=== PATIENT | male | born 1935 | race Two or more races ===

== ENCOUNTER 2020-02-24 12:09 | Emergency (ER) | payer OTHER ==
[~2020-02-24] VITALS: Ht 172.7 cm; Wt 92.5 kg
[2020-02-24] MEDS ORDERED: HUMULIN 70100 UNIT/2 SUBCUTANEO (12:23)
[2020-02-24] MEDS ORDERED: LASIX40 MG PO (12:23)
[2020-02-24] MEDS ORDERED: LEVO-T88 MCG PO (12:23)
[2020-02-24] MEDS ORDERED: CARBAMAZEPINE400 M1 PO (12:23)
[2020-02-24] MEDS ORDERED: VITAMIN D350 MC4 PO (12:23)
[2020-02-24] MEDS ORDERED: SIMVASTATIN40 MG PO (12:24)
[2020-02-24] MEDS ORDERED: SPIRONOLACTONE50 MG PO (12:24)
[2020-02-24] MEDS ORDERED: ULTRACET PO (12:44)
[2020-02-24] MEDS ORDERED: DICLOFENAC POTA50 MG PO (12:44)
== END 2020-02-24 14:20 | disposition home or self-care (01) ==
LOC: ER 12:09
DX: S40.012A Contusion of left shoulder, initial encounter (principal); W10.8XXA Fall (on) (from) other stairs and steps, initial encounter; Y93.89 Activity, other specified; Y92.018 Other place in single-family (private) house as the place of occurrence of the external cause; Y99.8 Other external cause status

== ENCOUNTER 2021-09-05 08:49 | Emergency (ER) | payer OTHER ==
[~2021-09-05] VITALS: Ht 172.7 cm; Wt 90.7 kg
[~2021-09-05 08:49] MED LIST: CARBAMAZEPINE400 M1 PO; DICLOFENAC POTA50 MG PO; HUMULIN 70100 UNIT/2 SUBCUTANEO; LASIX40 MG PO; LEVO-T88 MCG PO; SIMVASTATIN40 MG PO; SPIRONOLACTONE50 MG PO; ULTRACET PO; VITAMIN D350 MC4 PO
[2021-09-05] MEDS ORDERED: SYNTHROID88 MCG PO (09:22)
[2021-09-05] MEDS ORDERED: TEGRETOL XR400 MG PO (09:23)
[2021-09-05] MEDS ORDERED: ALDACTONE25 MG (09:25)
[2021-09-05] MEDS ORDERED: ULTRAM50 MG PO (12:59)
[2021-09-05] MEDS ORDERED: CELEBREX100 MG PO (12:59)
== END 2021-09-05 13:38 | disposition home or self-care (01) ==
LOC: ER 08:49
DX: S32.19XA Other fracture of sacrum, initial encounter for closed fracture (principal); M53.3 Sacrococcygeal disorders, not elsewhere classified; W01.198A Fall on same level from slipping, tripping and stumbling with subsequent striking against other object, initial encounter; Y93.89 Activity, other specified; Y92.018 Other place in single-family (private) house as the place of occurrence of the external cause; Y99.8 Other external cause status

== ENCOUNTER 2023-08-01 08:48 | Outpatient (CLI) | payer OTHER ==
[~2023-08-01 08:48] MED LIST changes: +ALDACTONE25 MG; +CELEBREX100 MG PO; +SYNTHROID88 MCG PO; +TEGRETOL XR400 MG PO; +ULTRAM50 MG PO
== END 2023-08-01 08:52 | disposition home or self-care (01) ==
LOC: RAD 08:48
PROVIDERS: ATTEND Internal Medicine Cardiovascular Disease
DX: I35.0 Nonrheumatic aortic (valve) stenosis (principal)

== ENCOUNTER 2024-08-17 20:13 | Inpatient (IN) | payer OTHER ==
[~2024-08-17] VITALS: Ht 152.4 cm; Wt 108.9 kg
--- NOTE | 2024-08-17 20:21 | NUR ---
SE RECIBE PTE ALERTA Y ORIENTADO EL CUAL REFIERE VENIR POR DOLOR ABDOMIANL. SE MIDEN S/V A PTE Y SE UBICA.
[2024-08-17] MEDS ORDERED: 0.9 % SODIUM CHLORIDE 1,000 ML IV SCH (20:30)
--- NOTE | 2024-08-17 20:50 | NUR ---
SE ORIENTA PTE SOBRE TX MEDICO EL CUAL REFIERE ENTENDER.SE LE EXTRAEN MUESTRAS BAJO MEDIDAS ASEPTICAS,PTE CANALIZADO POR PARAMEDICOS EN BRAZO LT CON #20.SE ENTREGA CONTRASTE Y SE ORIENTA.SE NOTIFICA CT PENDIENTE.
[2024-08-17 20:58] LABS: HEMOGLOBIN 12.8 g/dL (13-16.00); MEAN CELL VOLUME 105.7 fL (80.0-100.00); MEAN CORPUSCULAR HEMOGLOBIN 36.4 pg (27.00-32.0); MEAN CORPUSCULAR HGB CONC 34.5 g/dl (32.0-36.0); PLATELET COUNT 196 K/uL (150-450); RED CELL DISTRIBUTION WIDTH 14.6 % (11.5-14.5)
[2024-08-17 21:17] LABS: CALCIUM 8.5 mg/dL (8.5-10.1); CREATININE SERUM 1.22 mg/dL (0.70-1.30); GFR 55.93; POTASSIUM 5.22 mEq/L (3.5-5.1)
[2024-08-17 21:31] LABS: PH,URINE 6.5 (5.0-8.0); URINE APPEARANCE Clear; URINE BILIRRUBIN Small (NEGATIVE); URINE BLOOD Negative; URINE COLOR Dark Yellow; URINE GLUCOSE Negative (NEGATIVE); URINE LEUKOCYTE Trace; URINE NITRATE Negative; URINE PROTEIN 30 (NEGATIVE)
[2024-08-17 21:33] LABS: URINE BACTERIA 105.8 uL (0.0-1933); URINE CAST 2.59 uL (0.0-1.40); URINE WBC 5.5 uL (0.0-23.2)
[2024-08-17 21:36] LABS: URINE KETONE 40 (NEGATIVE)
--- NOTE | 2024-08-18 03:33 | NUR ---
PTE EVALUADO POR EL DR.VALE WANG ORDENA TRATAMIENTO LA GRABIEL SE EJECUTA POR MS. ANDERSON. SE MANTINE BAJO OBSERVACION.
--- NOTE | 2024-08-18 03:47 | NUR ---
SE LE INSERGA TUBO TRESSA 18 EN FOAS ANSELMO.
[2024-08-18 04:21] LABS: INR 1.2; PARTIAL THROMBOPLASTIN TIME 29.1 SECONDS (22.0-34.0); PROTHROMBIN TIME 12.9 SECONDS (9.0-11.5)
--- NOTE | 2024-08-18 07:23 | NUR ---
SE RECIBE PTE ALERTA Y ORIENTADO X3 EL MISMO EN RADHA BAJA POR SEGURIDAD. SE OBSERVA CANALIZACION PATENTE POR DONDE BAJA IVLFUIDS FIDEL ORDEN MEDICA. SE OBSERVA NGT EN FOSA NASAL POR DONDE DRENA LIQUIDO COLOR GAUTAM, ENVACE CON 500 ML DE RESIDUOS.
[2024-08-18] MEDS ORDERED: PIPERACILLIN/TAZOBACTAM SODIUM 3.375 GM in 0.9 % SODIUM CHLORIDE 100 ML IV SCH (09:56)
[2024-08-18] MEDS ORDERED: 0.9 % SODIUM CHLORIDE 1,000 ML IV SCH (10:00)
[2024-08-18] MEDS ORDERED: ONDANSETRON HCL 4 MG in 0.9 % SODIUM CHLORIDE 50 ML IV PRN (10:00)
[2024-08-18] MEDS ORDERED: PANTOPRAZOLE SODIUM 40 MG/VIAL VIAL IV SCH (10:01)
[2024-08-18] MEDS ORDERED: MEPERIDINE HCL/PF 25 MG/ML VIAL IV PRN (10:15)
[2024-08-18] MEDS ORDERED: DEXTROSE 50 % IN WATER 0.5 G/ML DISP.SYRIN IV PRN (10:15)
[2024-08-18] MEDS ORDERED: INSULIN LISPRO 1,000 UNIT/10 ML UNITS SUBCUTANEO PRN (10:15)
[2024-08-18] MEDS ORDERED: CARBAMAZEPINE 100 MG/5 ML PO SCH (10:15)
[2024-08-18] MEDS ORDERED: ENALAPRILAT DIHYDRATE 1.25 MG/ML VIAL IV PRN (10:15)
[2024-08-18] MEDS ORDERED: METRONIDAZOLE/SODIUM CHLORIDE 100 ML IV SCH (10:22)
[2024-08-18 12:45] VITALS: BP 131/52; O2SAT 91
[2024-08-18 15:36] VITALS: BP 150/59
[2024-08-18] MEDS ORDERED: CIPROFLOXACIN IN 5 % DEXTROSE 200 ML IV SCH (21:10)
[2024-08-19 01:14] VITALS: BP 150/63; O2SAT 98
[2024-08-19 07:10] LABS: HEMATOCRIT 34.6 % (39.0-48.0); MEAN CELL VOLUME 103.6 fL (80.0-100.00); MEAN CORPUSCULAR HEMOGLOBIN 35.9 pg (27.00-32.0); MEAN CORPUSCULAR HGB CONC 34.6 g/dl (32.0-36.0); PLATELET COUNT 169 K/uL (150-450); RED BLOOD COUNT 3.34 M/uL (4.00-6.00); RED CELL DISTRIBUTION WIDTH 15.1 % (11.5-14.5)
[2024-08-19 07:17] LABS: ALBUMIN 3.2 gm/dL (3.4-5.0); BILIRUBIN TOTAL 0.55 mg/dL (0.3-1.2); CALCIUM 7.9 mg/dL (8.5-10.1); CREATININE SERUM 1.22 mg/dL (0.70-1.30); GFR 55.93; GLOBULINA 3.4 G/DL (2.4-3.5); MAGNESIUM 2.9 mg/dL (1.8-2.4); PHOSPHOROUS 3.4 mg/dL (2.5-4.9); POTASSIUM 4.44 mEq/L (3.5-5.1); TOTAL PROTEIN 6.6 gm/dL (6.4-8.2)
[2024-08-19 08:03] VITALS: BP 153/73; O2SAT 94
[2024-08-19 14:46] LABS: PH,URINE 6.5 (5.0-8.0); URINE APPEARANCE Clear; URINE BILIRRUBIN Small (NEGATIVE); URINE BLOOD Negative; URINE COLOR Dark Yellow; URINE KETONE Negative (NEGATIVE); URINE LEUKOCYTE Small; URINE NITRATE Positive; URINE UROBILINOGEN 0.2 E.U./dl
[2024-08-19 14:47] LABS: URINE CAST 1.83 uL (0.0-1.40); URINE EPITHELIAL CELLS 8.6 uL (0.0-38.8); URINE RBC 30.2 uL (0.0-20.8)
[2024-08-19 14:59] LABS: URINE GLUCOSE 250 MG/DL (NEGATIVE); URINE PROTEIN 100 (NEGATIVE); URINE WBC 1.5 uL (0.0-23.2)
[2024-08-19 17:55] VITALS: BP 117/81; O2SAT 97
[2024-08-20 00:51] VITALS: BP 149/87; O2SAT 95
[2024-08-20 06:26] LABS: HEMATOCRIT 36.6 % (39.0-48.0); HEMOGLOBIN 12.7 g/dL (13-16.00); MEAN CELL VOLUME 103.7 fL (80.0-100.00); MEAN CORPUSCULAR HEMOGLOBIN 35.9 pg (27.00-32.0); MEAN CORPUSCULAR HGB CONC 34.6 g/dl (32.0-36.0); PLATELET COUNT 160 K/uL (150-450); RED BLOOD COUNT 3.53 M/uL (4.00-6.00); RED CELL DISTRIBUTION WIDTH 14.7 % (11.5-14.5)
[2024-08-20 07:11] LABS: ALBUMIN 3.2 gm/dL (3.4-5.0); BILIRUBIN TOTAL 0.65 mg/dL (0.3-1.2); CREATININE SERUM 0.9 mg/dL (0.70-1.30); GFR 79.45; GLOBULINA 3.4 G/DL (2.4-3.5); MAGNESIUM 2.6 mg/dL (1.8-2.4); PHOSPHOROUS 2.3 mg/dL (2.5-4.9); POTASSIUM 4.01 mEq/L (3.5-5.1); PROSTATIC SPECIFIC ANTIGEN 0.863 NG/ML (0.010-4.00); TOTAL PROTEIN 6.6 gm/dL (6.4-8.2)
[2024-08-20 07:12] LABS: C-REACTIVE PROTEIN 13.9 MG/DL (0.00-0.29)
[2024-08-20 08:47] VITALS: BP 148/84; O2SAT 96
[2024-08-20 10:43] LABS: CALCIUM 8.3 mg/dL (8.5-10.1); CHOL HDL RATIO 1.9 (0-5.0); CREATININE SERUM 0.92 mg/dL (0.70-1.30); GFR 77.46; POTASSIUM 3.99 mEq/L (3.5-5.1)
[2024-08-20] MEDS ORDERED: AA 2.36%/D6.8W/FAT/E-LYTES NO9 1,440 ML IV SCH (17:00)
[2024-08-20 17:25] VITALS: BP 160/85; O2SAT 97
[2024-08-21] VITALS (7 sets, daily range): BP systolic 141–163; BP diastolic 85–90; O2SAT 85–100
[2024-08-21] MEDS ORDERED: IPRATROPIUM BROMIDE 0.5 MG/2.5 ML AMPUL.NEB IH STA (04:47)
[2024-08-21] MEDS ORDERED: FUROsemide 20 MG/2 ML VIAL IV STA (04:48)
[2024-08-21] MEDS ORDERED: IPRATROPIUM BROMIDE 0.5 MG/2.5 ML AMPUL.NEB IH SCH (05:00)
[2024-08-21 05:16] LABS: ABG PH 7.448 (7.35-7.45); ABG pCO2 36.3 mmHg (35-45); BASE EXCESS 0.9 mmol/l; BICARBONATE 24.5 mmol/l (23-25); SaO2 92.9 %; Tco2 25.6 mmol/l
[2024-08-21 07:14] LABS: allen test SATISFACTORY; o2 50 %; puncture site RADIAL LEFT
[2024-08-21 08:40] LABS: ALBUMIN 3.1 gm/dL (3.4-5.0); CALCIUM 8.1 mg/dL (8.5-10.1); CREATININE SERUM 0.91 mg/dL (0.70-1.30); GFR 78.45; MAGNESIUM 2.4 mg/dL (1.8-2.4); POTASSIUM 3.68 mEq/L (3.5-5.1)
[2024-08-21 09:06] LABS: PHOSPHOROUS 1.8 mg/dL (2.5-4.9)
[2024-08-21] MEDS ORDERED: POTASSIUM PHOS,M-BASIC-D-BASIC 3 MM/ML VIAL IV NR (09:15)
[2024-08-21 10:27] LABS: ABG PH 7.363 (7.35-7.45); ABG pCO2 45.2 mmHg (35-45); BASE EXCESS -0.6 mmol/l; BICARBONATE 25.2 mmol/l (23-25); SaO2 99.9 %; Tco2 26.6 mmol/l
[2024-08-21 11:33] LABS: o2 100 %
[2024-08-21 11:34] LABS: allen test SATISFACTORY; puncture site RADIAL RIGHT
[2024-08-21] MEDS ORDERED: BISACODYL 10 MG/SUPP.RECT SUPP.RECT RECTAL SCH (21:30)
[2024-08-22] VITALS (10 sets, daily range): BP systolic 122–155; BP diastolic 70–93; O2SAT 92–100
[2024-08-22] MEDS ORDERED: LEVALBUTEROL HCL 1.25 MG/3 ML SOLUTION IH STA (00:12)
[2024-08-22] MEDS ORDERED: FUROsemide 40 MG/4 ML VIAL IV ONE (00:15)
[2024-08-22] MEDS ORDERED: LEVALBUTEROL HCL 1.25 MG/3 ML SOLUTION IH SCH (04:00)
[2024-08-22 08:01] LABS: HEMATOCRIT 35.4 % (39.0-48.0); HEMOGLOBIN 12.3 g/dL (13-16.00); MEAN CORPUSCULAR HEMOGLOBIN 35.7 pg (27.00-32.0); MEAN CORPUSCULAR HGB CONC 34.6 g/dl (32.0-36.0); PLATELET COUNT 156 K/uL (150-450); RED BLOOD COUNT 3.44 M/uL (4.00-6.00); RED CELL DISTRIBUTION WIDTH 14.4 % (11.5-14.5)
[2024-08-22 08:37] LABS: ALBUMIN 2.7 gm/dL (3.4-5.0); BILIRUBIN TOTAL 0.67 mg/dL (0.3-1.2); CALCIUM 7.9 mg/dL (8.5-10.1); CREATININE SERUM 0.95 mg/dL (0.70-1.30); GFR 74.65; GLOBULINA 3.3 G/DL (2.4-3.5); MAGNESIUM 2.1 mg/dL (1.8-2.4); PHOSPHOROUS 2.2 mg/dL (2.5-4.9); POTASSIUM 3.42 mEq/L (3.5-5.1)
[2024-08-22] MEDS ORDERED: SODIUM CHLORIDE FOR INHALATION 1 VIAL.NEB IH SCH (09:00)
[2024-08-22 12:41] LABS: ABG PH 7.465 (7.35-7.45); ABG PO2 68.2 mmHg (80-100); ABG pCO2 38.8 mmHg (35-45); BASE EXCESS 3.4 mmol/l; BICARBONATE 27.3 mmol/l (23-25); SaO2 94.7 %; Tco2 28.4 mmol/l
[2024-08-22 12:51] LABS: allen test SATISFACTORY; o2 100 %; puncture site RADIAL RIGHT
[2024-08-23] VITALS (9 sets, daily range): BP systolic 122–140; BP diastolic 74–78; O2SAT 94–100
[2024-08-23 06:13] LABS: HEMATOCRIT 31.7 % (39.0-48.0); MEAN CORPUSCULAR HEMOGLOBIN 36.2 pg (27.00-32.0); MEAN CORPUSCULAR HGB CONC 34.8 g/dl (32.0-36.0); PLATELET COUNT 151 K/uL (150-450); RED BLOOD COUNT 3.05 M/uL (4.00-6.00); RED CELL DISTRIBUTION WIDTH 14.2 % (11.5-14.5)
[2024-08-23 06:52] LABS: ALBUMIN 2.4 gm/dL (3.4-5.0); BILIRUBIN TOTAL 0.69 mg/dL (0.3-1.2); BILIRUBIN,CONJUGATED 0.3 mg/dL (0.0-0.2); BILIRUBIN,UNCONJUGATED 0.39 mg/dL (0.0-0.6); CHOL HDL RATIO 1.9 (0-5.0); CREATININE SERUM 0.9 mg/dL (0.70-1.30); GFR 79.45; GLOBULINA 3.2 G/DL (2.4-3.5); MAGNESIUM 2.2 mg/dL (1.8-2.4); POTASSIUM 3.75 mEq/L (3.5-5.1); TOTAL PROTEIN 5.6 gm/dL (6.4-8.2)
[2024-08-23 07:00] LABS: INR 1.33; PROTHROMBIN TIME 13.6 SECONDS (9.0-11.5)
[2024-08-23] MEDS ORDERED: MEROPENEM 500 MG/VIAL VIAL IV SCH (18:00)
[2024-08-24] VITALS (8 sets, daily range): BP systolic 113–140; BP diastolic 71–78; O2SAT 96–99
[2024-08-24 08:13] LABS: HEMATOCRIT 32.8 % (39.0-48.0); HEMOGLOBIN 11.1 g/dL (13-16.00); MEAN CELL VOLUME 104.8 fL (80.0-100.00); MEAN CORPUSCULAR HEMOGLOBIN 35.4 pg (27.00-32.0); MEAN CORPUSCULAR HGB CONC 33.8 g/dl (32.0-36.0); PLATELET COUNT 169 K/uL (150-450); RED BLOOD COUNT 3.13 M/uL (4.00-6.00); RED CELL DISTRIBUTION WIDTH 14.5 % (11.5-14.5)
[2024-08-24 08:57] LABS: ABG PH 7.399 (7.35-7.45); ABG PO2 136.7 mmHg (80-100); ABG pCO2 44.8 mmHg (35-45); BASE EXCESS 1.8 mmol/l; BICARBONATE 27.1 mmol/l (23-25); SaO2 99.1 %; Tco2 28.5 mmol/l
[2024-08-24 11:51] LABS: UREA CLEARANCE 29.5 ML/MIN
[2024-08-24 14:41] LABS: o2 100 %
[2024-08-24 14:42] LABS: allen test SATISFACTORY; puncture site RADIAL LEFT
[2024-08-24] MEDS ORDERED: VANCOMYCIN HCL 1,000 MG VIAL IV SCH (21:00)
[2024-08-25] VITALS (8 sets, daily range): BP systolic 117–137; BP diastolic 63–80; O2SAT 97–99
[2024-08-25 08:16] LABS: HEMATOCRIT 30.5 % (39.0-48.0); HEMOGLOBIN 10.6 g/dL (13-16.00); MEAN CELL VOLUME 102.5 fL (80.0-100.00); MEAN CORPUSCULAR HEMOGLOBIN 35.5 pg (27.00-32.0); MEAN CORPUSCULAR HGB CONC 34.6 g/dl (32.0-36.0); PLATELET COUNT 175 K/uL (150-450); RED BLOOD COUNT 2.98 M/uL (4.00-6.00); RED CELL DISTRIBUTION WIDTH 14.3 % (11.5-14.5)
[2024-08-25 09:10] LABS: ALBUMIN 2.1 gm/dL (3.4-5.0); BILIRUBIN TOTAL 0.77 mg/dL (0.3-1.2); CALCIUM 8.1 mg/dL (8.5-10.1); CREATININE SERUM 0.68 mg/dL (0.70-1.30); GFR 109.8; GLOBULINA 3.3 G/DL (2.4-3.5); MAGNESIUM 2.4 mg/dL (1.8-2.4); PHOSPHOROUS 2.3 mg/dL (2.5-4.9); POTASSIUM 4.18 mEq/L (3.5-5.1); TOTAL PROTEIN 5.4 gm/dL (6.4-8.2)
[2024-08-25 17:02] LABS: FERRITIN 465.1 NG/ML (26-388)
[2024-08-25] MEDS ORDERED: SOD FERRIC GLUC COMPLX/SUCROSE 62.5 MG/5 ML AMPUL IV SCH (19:00)
[2024-08-25] MEDS ORDERED: MULTIVIT INFUSN,ADULT 4,VIT K 10 ML VIAL IV SCH (19:01)
[2024-08-25] MEDS ORDERED: POTASSIUM PHOS,M-BASIC-D-BASIC 9 MM in 0.9 % SODIUM CHLORIDE 250 ML IV ONE (21:30)
[2024-08-26] VITALS (9 sets, daily range): BP systolic 108–122; BP diastolic 76–85; O2SAT 96–100
[2024-08-26 11:09] LABS: FOLIC ACID 11.06 ng/ml (4.78-20)
[2024-08-27] VITALS (10 sets, daily range): BP systolic 112–139; BP diastolic 69–83; O2SAT 96–100
[2024-08-27 06:33] LABS: HEMATOCRIT 28.4 % (39.0-48.0); HEMOGLOBIN 9.8 g/dL (13-16.00); MEAN CELL VOLUME 102.2 fL (80.0-100.00); MEAN CORPUSCULAR HEMOGLOBIN 35.3 pg (27.00-32.0); MEAN CORPUSCULAR HGB CONC 34.5 g/dl (32.0-36.0); PLATELET COUNT 179 K/uL (150-450); RED BLOOD COUNT 2.78 M/uL (4.00-6.00); RED CELL DISTRIBUTION WIDTH 14.4 % (11.5-14.5)
[2024-08-27 07:22] LABS: ALBUMIN 2.1 gm/dL (3.4-5.0); BILIRUBIN TOTAL 0.72 mg/dL (0.3-1.2); CREATININE SERUM 0.61 mg/dL (0.70-1.30); GFR 124.46; GLOBULINA 3.3 G/DL (2.4-3.5); MAGNESIUM 2.2 mg/dL (1.8-2.4); PHOSPHOROUS 2.8 mg/dL (2.5-4.9); POTASSIUM 4.04 mEq/L (3.5-5.1); TOTAL PROTEIN 5.4 gm/dL (6.4-8.2)
[2024-08-27 07:44] LABS: C-REACTIVE PROTEIN 4.75 MG/DL (0.00-0.29)
[2024-08-27] MEDS ORDERED: ENOXAPARIN SODIUM 40 MG/0.4 ML SYRINGE SUBCUTANEO NR (16:15)
[2024-08-27] MEDS ORDERED: VANCOMYCIN HCL 5 MG/ML REDILUIDO IV SCH (21:00)
[2024-08-28] VITALS (8 sets, daily range): BP systolic 108–133; BP diastolic 65–80; O2SAT 90–100
[2024-08-28] MEDS ORDERED: ENOXAPARIN SODIUM 40 MG/0.4 ML SYRINGE SUBCUTANEO SCH (09:00)
[2024-08-28] MEDS ORDERED: FUROsemide 20 MG/2 ML VIAL IV STA (10:48)
[2024-08-28] MEDS ORDERED: PANTOPRAZOLE SODIUM 40 MG/VIAL VIAL IV SCH (12:06)
[2024-08-28 14:06] LABS: ABG PH 7.498 (7.35-7.45); ABG PO2 84.7 mmHg (80-100); ABG pCO2 37.1 mmHg (35-45); BASE EXCESS 4.9 mmol/l; BICARBONATE 28.2 mmol/l (23-25); SaO2 97.4 %; Tco2 29.3 mmol/l; allen test SATISFACTORY; puncture site RADIAL LEFT
[2024-08-28 14:07] LABS: o2 50 %
[2024-08-28] MEDS ORDERED: FUROsemide 20 MG/2 ML VIAL IV SCH (21:00)
[2024-08-29] VITALS (10 sets, daily range): BP systolic 128–142; BP diastolic 61–85; O2SAT 95–100
[2024-08-29 07:41] LABS: HEMATOCRIT 31.3 % (39.0-48.0); HEMOGLOBIN 10.6 g/dL (13-16.00); MEAN CELL VOLUME 104.7 fL (80.0-100.00); MEAN CORPUSCULAR HEMOGLOBIN 35.5 pg (27.00-32.0); MEAN CORPUSCULAR HGB CONC 33.9 g/dl (32.0-36.0); PLATELET COUNT 232 K/uL (150-450); RED BLOOD COUNT 2.99 M/uL (4.00-6.00); RED CELL DISTRIBUTION WIDTH 14.3 % (11.5-14.5)
[2024-08-29 08:09] LABS: ALBUMIN 2.3 gm/dL (3.4-5.0); BILIRUBIN TOTAL 0.7 mg/dL (0.3-1.2); CALCIUM 8.4 mg/dL (8.5-10.1); CREATININE SERUM 0.75 mg/dL (0.70-1.30); GFR 98.06; GLOBULINA 3.6 G/DL (2.4-3.5); POTASSIUM 4.38 mEq/L (3.5-5.1); TOTAL PROTEIN 5.9 gm/dL (6.4-8.2)
[2024-08-29] MEDS ORDERED: FUROsemide 20 MG/2 ML VIAL IV SCH (13:49)
[2024-08-30] VITALS (10 sets, daily range): BP systolic 95–137; BP diastolic 56–76; O2SAT 93–99
[2024-08-30 06:17] LABS: HEMATOCRIT 30.3 % (39.0-48.0); HEMOGLOBIN 10.6 g/dL (13-16.00); MEAN CELL VOLUME 101.9 fL (80.0-100.00); MEAN CORPUSCULAR HEMOGLOBIN 35.5 pg (27.00-32.0); MEAN CORPUSCULAR HGB CONC 34.8 g/dl (32.0-36.0); PLATELET COUNT 253 K/uL (150-450); RED BLOOD COUNT 2.98 M/uL (4.00-6.00); RED CELL DISTRIBUTION WIDTH 14.3 % (11.5-14.5)
[2024-08-30 06:44] LABS: INR 1.21
[2024-08-30 07:22] LABS: ALBUMIN 2.3 gm/dL (3.4-5.0); BILIRUBIN TOTAL 0.57 mg/dL (0.3-1.2); BILIRUBIN,CONJUGATED 0.24 mg/dL (0.0-0.2); BILIRUBIN,UNCONJUGATED 0.33 mg/dL (0.0-0.6); CALCIUM 8.2 mg/dL (8.5-10.1); CHOL HDL RATIO 4.1 (0-5.0); CREATININE SERUM 0.7 mg/dL (0.70-1.30); GFR 106.18; GLOBULINA 3.8 G/DL (2.4-3.5); MAGNESIUM 2.1 mg/dL (1.8-2.4); POTASSIUM 3.98 mEq/L (3.5-5.1); TOTAL PROTEIN 6.1 gm/dL (6.4-8.2)
[2024-08-30] MEDS ORDERED: LORazepam 2 MG/ML VIAL IV PUSH STA (19:13)
[2024-08-30] MEDS ORDERED: LORazepam 2 MG/ML VIAL IV PUSH PRN (19:15)
[2024-08-30] MEDS ORDERED: LevETIRAcetam 500 MG/5 ML VIAL IV SCH (21:00)
[2024-08-31 08:02] VITALS: BP 121/74
[2024-08-31 10:13] VITALS: O2SAT 98
[2024-08-31 16:12] VITALS: O2SAT 99
[2024-08-31] MEDS ORDERED: CEFTRIAXONE SODIUM 2,000 MG VIAL IV SCH (17:00)
[2024-08-31] MEDS ORDERED: DIPHENHYDRAMINE HCL 50 MG/ML VIAL 1ML IV SCH (17:00)
[2024-08-31 18:20] VITALS: BP 123/61; O2SAT 98
[2024-08-31 19:54] VITALS: O2SAT 98
[2024-08-31] MEDS ORDERED: DIATRIZOATE MEGLUMINE, SODIUM 30 ML BOTTLE PO ONE (20:00)
[2024-08-31 23:52] VITALS: O2SAT 95
[2024-09-01] VITALS (7 sets, daily range): BP systolic 118–136; BP diastolic 50–75; O2SAT 88–99
[2024-09-01 08:45] LABS: HEMATOCRIT 31.2 % (39.0-48.0); HEMOGLOBIN 10.7 g/dL (13-16.00); MEAN CELL VOLUME 102.3 fL (80.0-100.00); MEAN CORPUSCULAR HEMOGLOBIN 35.2 pg (27.00-32.0); MEAN CORPUSCULAR HGB CONC 34.4 g/dl (32.0-36.0); PLATELET COUNT 324 K/uL (150-450); RED BLOOD COUNT 3.05 M/uL (4.00-6.00); RED CELL DISTRIBUTION WIDTH 14.2 % (11.5-14.5)
[2024-09-01 09:42] LABS: ALBUMIN 2.5 gm/dL (3.4-5.0); BILIRUBIN TOTAL 0.37 mg/dL (0.3-1.2); CALCIUM 8.5 mg/dL (8.5-10.1); CREATININE SERUM 0.69 mg/dL (0.70-1.30); GFR 107.96; GLOBULINA 4.2 G/DL (2.4-3.5); MAGNESIUM 2.4 mg/dL (1.8-2.4); PHOSPHOROUS 2.7 mg/dL (2.5-4.9); POTASSIUM 3.98 mEq/L (3.5-5.1); TOTAL PROTEIN 6.7 gm/dL (6.4-8.2)
[2024-09-01] MEDS ORDERED: ANIDULAFUNGIN 100 MG VIAL IV NR (13:45)
[2024-09-01] MEDS ORDERED: LevETIRAcetam 500 MG/5 ML VIAL IV SCH (21:00)
[2024-09-02] VITALS (9 sets, daily range): BP systolic 110–119; BP diastolic 53–74; O2SAT 89–97
[2024-09-02] MEDS ORDERED: ANIDULAFUNGIN 100 MG VIAL IV SCH (12:00)
[2024-09-02] MEDS ORDERED: AA 4.25%/CAL/LYTES/DEXT 5% 1,000 ML PERIFERAL SCH (17:00)
[2024-09-02] MEDS ORDERED: LevETIRAcetam 5 MG/1 ML REDILUIDO IV SCH (21:00)
[2024-09-03] VITALS (9 sets, daily range): BP systolic 117–126; BP diastolic 57–70; O2SAT 90–97
[2024-09-03 06:51] LABS: HEMATOCRIT 28.8 % (39.0-48.0); HEMOGLOBIN 9.9 g/dL (13-16.00); MEAN CELL VOLUME 102.6 fL (80.0-100.00); MEAN CORPUSCULAR HEMOGLOBIN 35.3 pg (27.00-32.0); MEAN CORPUSCULAR HGB CONC 34.4 g/dl (32.0-36.0); PLATELET COUNT 272 K/uL (150-450); RED BLOOD COUNT 2.81 M/uL (4.00-6.00); RED CELL DISTRIBUTION WIDTH 14.5 % (11.5-14.5)
[2024-09-03 07:02] LABS: ALBUMIN 2.1 gm/dL (3.4-5.0); BILIRUBIN TOTAL 0.5 mg/dL (0.3-1.2); CALCIUM 8.4 mg/dL (8.5-10.1); CREATININE SERUM 0.81 mg/dL (0.70-1.30); GFR 89.72; MAGNESIUM 2.5 mg/dL (1.8-2.4); PHOSPHOROUS 2.4 mg/dL (2.5-4.9); POTASSIUM 3.86 mEq/L (3.5-5.1); TOTAL PROTEIN 6.1 gm/dL (6.4-8.2)
[2024-09-03] MEDS ORDERED: SOD FERRIC GLUC COMPLX/SUCROSE 62.5 MG/5 ML AMPUL IV SCH (13:42)
[2024-09-04] VITALS (9 sets, daily range): BP systolic 112–125; BP diastolic 58–62; O2SAT 90–99
[2024-09-04] MEDS ORDERED: MEROPENEM 500 MG/VIAL VIAL IV SCH (05:00)
[2024-09-05] VITALS (8 sets, daily range): BP systolic 122–149; BP diastolic 64–76; O2SAT 82–99
[2024-09-05 08:11] LABS: HEMATOCRIT 27.5 % (39.0-48.0); HEMOGLOBIN 9.4 g/dL (13-16.00); MEAN CELL VOLUME 101.4 fL (80.0-100.00); MEAN CORPUSCULAR HEMOGLOBIN 34.7 pg (27.00-32.0); MEAN CORPUSCULAR HGB CONC 34.2 g/dl (32.0-36.0); PLATELET COUNT 226 K/uL (150-450); RED BLOOD COUNT 2.71 M/uL (4.00-6.00); RED CELL DISTRIBUTION WIDTH 14.5 % (11.5-14.5)
[2024-09-05 08:42] LABS: ALBUMIN 1.8 gm/dL (3.4-5.0); BILIRUBIN TOTAL 0.51 mg/dL (0.3-1.2); CALCIUM 8.3 mg/dL (8.5-10.1); CREATININE SERUM 0.69 mg/dL (0.70-1.30); GFR 107.96; GLOBULINA 3.9 G/DL (2.4-3.5); MAGNESIUM 2.3 mg/dL (1.8-2.4); PHOSPHOROUS 2.6 mg/dL (2.5-4.9); POTASSIUM 3.97 mEq/L (3.5-5.1); TOTAL PROTEIN 5.7 gm/dL (6.4-8.2)
[2024-09-06] VITALS (9 sets, daily range): BP systolic 125–137; BP diastolic 51–75; O2SAT 90–100
[2024-09-06 01:55] LABS: ABG PH 7.466 (7.35-7.45); ABG PO2 57.5 mmHg (80-100); ABG pCO2 38.8 mmHg (35-45); BASE EXCESS 3.5 mmol/l; BICARBONATE 27.3 mmol/l (23-25); SaO2 91.6 %
[2024-09-06 01:56] LABS: Tco2 28.5 mmol/l; allen test SATISFACTORY; o2 50 %; puncture site RADIAL RIGHT
[2024-09-06 07:02] LABS: HEMATOCRIT 28.1 % (39.0-48.0); HEMOGLOBIN 9.6 g/dL (13-16.00); MEAN CELL VOLUME 101.8 fL (80.0-100.00); MEAN CORPUSCULAR HEMOGLOBIN 34.9 pg (27.00-32.0); MEAN CORPUSCULAR HGB CONC 34.3 g/dl (32.0-36.0); RED BLOOD COUNT 2.76 M/uL (4.00-6.00); RED CELL DISTRIBUTION WIDTH 14.9 % (11.5-14.5)
[2024-09-06 07:10] LABS: INR 1.2; PARTIAL THROMBOPLASTIN TIME 25.6 SECONDS (22.0-34.0); PROTHROMBIN TIME 12.9 SECONDS (9.0-11.5)
[2024-09-06 07:21] LABS: ALBUMIN 1.7 gm/dL (3.4-5.0); BILIRUBIN TOTAL 0.44 mg/dL (0.3-1.2); CALCIUM 8.3 mg/dL (8.5-10.1); CREATININE SERUM 0.65 mg/dL (0.70-1.30); GFR 115.66; MAGNESIUM 2.2 mg/dL (1.8-2.4); PHOSPHOROUS 2.2 mg/dL (2.5-4.9); POTASSIUM 4.61 mEq/L (3.5-5.1); TOTAL PROTEIN 5.7 gm/dL (6.4-8.2)
[2024-09-06 07:46] LABS: PLATELET COUNT 168 K/uL (150-450)
[2024-09-06 11:09] LABS: ABG PH 7.458 (7.35-7.45); ABG PO2 103.5 mmHg (80-100); ABG pCO2 38.9 mmHg (35-45); BICARBONATE 26.9 mmol/l (23-25); SaO2 98.3 %; Tco2 28.1 mmol/l
[2024-09-06 11:15] LABS: allen test SATISFACTORY; o2 100 %; puncture site RADIAL RIGHT
[2024-09-06] MEDS ORDERED: POTASSIUM PHOS,M-BASIC-D-BASIC 18 MM in 0.9 % SODIUM CHLORIDE 250 ML IV NR (14:45)
[2024-09-06] MEDS ORDERED: CYANOCOBALAMIN (VITAMIN B-12) 1,000 MCG/ML VIAL SUBCUTANEO SCH (17:00)
[2024-09-06] MEDS ORDERED: FOLIC ACID 5 MG/ML VIAL IV SCH (17:00)
[2024-09-06] MEDS ORDERED: FUROsemide 20 MG/2 ML VIAL IV ONE (19:15)
[2024-09-06] MEDS ORDERED: INSULIN GLARGINE,HUM.REC.ANLOG 1,000 UNITS/10 ML UNITS SUBCUTANEO SCH (21:00)
[2024-09-06 22:30] LABS: ALBUMIN 1.7 gm/dL (3.4-5.0); BILIRUBIN TOTAL 0.44 mg/dL (0.3-1.2); BILIRUBIN,CONJUGATED 0.15 mg/dL (0.0-0.2); BILIRUBIN,UNCONJUGATED 0.29 mg/dL (0.0-0.6); CALCIUM 8.7 mg/dL (8.5-10.1); CHOL HDL RATIO 6.1 (0-5.0); CREATININE SERUM 0.71 mg/dL (0.70-1.30); GFR 104.46; GLOBULINA 5.1 G/DL (2.4-3.5); MAGNESIUM 2.2 mg/dL (1.8-2.4); POTASSIUM 4.46 mEq/L (3.5-5.1); TOTAL PROTEIN 6.8 gm/dL (6.4-8.2)
[2024-09-06 22:40] LABS: UREA CLEARANCE 48.4 ML/MIN
[2024-09-07] VITALS (9 sets, daily range): BP systolic 150–159; BP diastolic 73–80; O2SAT 89–100
[2024-09-07] MEDS ORDERED: LEVOTHYROXINE SODIUM 100 MCG/VIAL VIAL IV SCH (09:00)
[2024-09-07 12:43] LABS: HEMATOCRIT 29.8 % (39.0-48.0); MEAN CELL VOLUME 103.1 fL (80.0-100.00); MEAN CORPUSCULAR HEMOGLOBIN 34.5 pg (27.00-32.0); MEAN CORPUSCULAR HGB CONC 33.4 g/dl (32.0-36.0); PLATELET COUNT 174 K/uL (150-450); RED BLOOD COUNT 2.89 M/uL (4.00-6.00); RED CELL DISTRIBUTION WIDTH 14.4 % (11.5-14.5)
[2024-09-07] MEDS ORDERED: LINEZOLID IN DEXTROSE 5% 300 ML IV SCH (17:00)
[2024-09-08] VITALS (8 sets, daily range): BP systolic 105–165; BP diastolic 50–73; O2SAT 90–99
[2024-09-08 12:45] LABS: ABG PH 7.461 (7.35-7.45); ABG PO2 65.5 mmHg (80-100); ABG pCO2 42.3 mmHg (35-45); BASE EXCESS 5.1 mmol/l; BICARBONATE 29.5 mmol/l (23-25); SaO2 94.1 %; Tco2 30.8 mmol/l
[2024-09-08 12:46] LABS: allen test SATISFACTORY; o2 50 %; puncture site RADIAL RIGHT
[2024-09-08] MEDS ORDERED: levoFLOXacin IN DEXTROSE 5 % 5 MG/ML PIGGYBAG IV NR (14:00)
[2024-09-08] MEDS ORDERED: AA 4.25%/CAL/LYTES/DEXT 5% 1,000 ML PERIFERAL SCH (17:00)
[2024-09-09] VITALS (10 sets, daily range): BP systolic 129–137; BP diastolic 50–71; O2SAT 95–99
[2024-09-09 07:13] LABS: HEMATOCRIT 27.9 % (39.0-48.0); HEMOGLOBIN 9.6 g/dL (13-16.00); MEAN CELL VOLUME 101.6 fL (80.0-100.00); MEAN CORPUSCULAR HEMOGLOBIN 34.9 pg (27.00-32.0); MEAN CORPUSCULAR HGB CONC 34.4 g/dl (32.0-36.0); PLATELET COUNT 159 K/uL (150-450); RED BLOOD COUNT 2.75 M/uL (4.00-6.00); RED CELL DISTRIBUTION WIDTH 14.6 % (11.5-14.5)
[2024-09-09 07:53] LABS: ALBUMIN 1.7 gm/dL (3.4-5.0); BILIRUBIN TOTAL 0.32 mg/dL (0.3-1.2); CALCIUM 8.5 mg/dL (8.5-10.1); CREATININE SERUM 0.62 mg/dL (0.70-1.30); GFR 122.15; GLOBULINA 4.2 G/DL (2.4-3.5); MAGNESIUM 2.4 mg/dL (1.8-2.4); PHOSPHOROUS 3.2 mg/dL (2.5-4.9); TOTAL PROTEIN 5.9 gm/dL (6.4-8.2)
[2024-09-09] MEDS ORDERED: LEVOTHYROXINE SODIUM 100 MCG/VIAL VIAL IV SCH (09:00)
[2024-09-09] MEDS ORDERED: levoFLOXacin IN DEXTROSE 5 % 150 ML IV SCH (09:00)
[2024-09-10] VITALS (8 sets, daily range): BP systolic 94–120; BP diastolic 60–68; O2SAT 94–100
[2024-09-10] MEDS ORDERED: ANIDULAFUNGIN 100 MG VIAL IV SCH (12:00)
[2024-09-10] MEDS ORDERED: IPRATROPIUM BROMIDE 0.5 MG/2.5 ML AMPUL.NEB IH SCH (21:00)
[2024-09-11] VITALS (9 sets, daily range): BP systolic 133–173; BP diastolic 62–65; O2SAT 89–99
[2024-09-11 08:14] LABS: MEAN CORPUSCULAR HEMOGLOBIN 34.8 pg (27.00-32.0); MEAN CORPUSCULAR HGB CONC 34.5 g/dl (32.0-36.0); PLATELET COUNT 210 K/uL (150-450); RED BLOOD COUNT 2.87 M/uL (4.00-6.00)
[2024-09-11 08:26] LABS: CALCIUM 8.6 mg/dL (8.5-10.1); CREATININE SERUM 0.73 mg/dL (0.70-1.30); GFR 101.17; POTASSIUM 4.64 mEq/L (3.5-5.1)
[2024-09-11] MEDS ORDERED: LevETIRAcetam 500 MG/5 ML VIAL IV STA (19:15)
[2024-09-11] MEDS ORDERED: LORazepam 2 MG/ML VIAL IV STA (19:43)
[2024-09-11] MEDS ORDERED: LevETIRAcetam 5 MG/1 ML REDILUIDO IV SCH (21:00)
[2024-09-12] VITALS (9 sets, daily range): BP systolic 111–127; BP diastolic 50–69; O2SAT 90–99
[2024-09-13] VITALS (7 sets, daily range): BP systolic 118–150; BP diastolic 64–75; O2SAT 97–99
[2024-09-13 15:23] LABS: INR 1.21; PARTIAL THROMBOPLASTIN TIME 31.3 SECONDS (22.0-34.0)
[2024-09-13 15:25] LABS: HEMATOCRIT 33.3 % (39.0-48.0); MEAN CELL VOLUME 103.6 fL (80.0-100.00); MEAN CORPUSCULAR HEMOGLOBIN 34.2 pg (27.00-32.0); PLATELET COUNT 237 K/uL (150-450); RED BLOOD COUNT 3.21 M/uL (4.00-6.00); RED CELL DISTRIBUTION WIDTH 15.2 % (11.5-14.5)
[2024-09-14] VITALS (9 sets, daily range): BP systolic 107–155; BP diastolic 50–66; O2SAT 6–98
[2024-09-14] MEDS ORDERED: LORazepam 2 MG/ML VIAL IV SCH (22:30)
[2024-09-15] VITALS (8 sets, daily range): BP systolic 102–146; BP diastolic 49–79; O2SAT 95–99
[2024-09-15 06:27] LABS: ALBUMIN 2.3 gm/dL (3.4-5.0); BILIRUBIN TOTAL 0.41 mg/dL (0.3-1.2); CALCIUM 8.7 mg/dL (8.5-10.1); CREATININE SERUM 0.78 mg/dL (0.70-1.30); GFR 93.72; GLOBULINA 4.2 G/DL (2.4-3.5); MAGNESIUM 2.3 mg/dL (1.8-2.4); PHOSPHOROUS 3.3 mg/dL (2.5-4.9); POTASSIUM 4.62 mEq/L (3.5-5.1); TOTAL PROTEIN 6.5 gm/dL (6.4-8.2)
[2024-09-16] VITALS (8 sets, daily range): BP systolic 114–141; BP diastolic 66–76; O2SAT 90–100
[2024-09-17] VITALS (9 sets, daily range): BP systolic 123–129; BP diastolic 69–77; O2SAT 94–100
[2024-09-18] VITALS (7 sets, daily range): BP systolic 114–145; BP diastolic 54–84; O2SAT 94–100
[2024-09-18 08:26] LABS: ALBUMIN 2.4 gm/dL (3.4-5.0); BILIRUBIN TOTAL 0.57 mg/dL (0.3-1.2); CALCIUM 8.8 mg/dL (8.5-10.1); CREATININE SERUM 0.72 mg/dL (0.70-1.30); GFR 102.79; GLOBULINA 4.1 G/DL (2.4-3.5); POTASSIUM 4.54 mEq/L (3.5-5.1); TOTAL PROTEIN 6.5 gm/dL (6.4-8.2)
[2024-09-18 08:27] LABS: HEMOGLOBIN 9.6 g/dL (13-16.00); MEAN CELL VOLUME 102.1 fL (80.0-100.00); MEAN CORPUSCULAR HEMOGLOBIN 34.9 pg (27.00-32.0); MEAN CORPUSCULAR HGB CONC 34.2 g/dl (32.0-36.0); PLATELET COUNT 182 K/uL (150-450); RED BLOOD COUNT 2.75 M/uL (4.00-6.00); RED CELL DISTRIBUTION WIDTH 14.7 % (11.5-14.5)
== END 2024-09-18 23:30 | disposition designated cancer center or children's hospital (05) | DRG 388 ==
LOC: ER 20:13 → MEDJ 08-18 10:35
PROVIDERS: Emergency Medicine; General Practice; Internal Medicine; Internal Medicine Critical Care Medicine; Internal Medicine Hematology & Oncology; Internal Medicine Infectious Disease; Internal Medicine Pulmonary Disease; ADMIT Internal Medicine; ATTEND Internal Medicine
PROC: BW21ZZZ Computerized Tomography (CT Scan) of Abdomen and Pelvis (ICD-10-PCS; 2024-08-17)
PROC: 0D9670Z Drainage of Stomach with Drainage Device, Via Natural or Artificial Opening (ICD-10-PCS; principal; 2024-08-18)
PROC: B246ZZZ Ultrasonography of Right and Left Heart (ICD-10-PCS; 2024-08-19)
PROC: 3E0F7GC Introduction of Other Therapeutic Substance into Respiratory Tract, Via Natural or Artificial Opening (ICD-10-PCS; 2024-08-21)
PROC: 4A12X4Z Monitoring of Cardiac Electrical Activity, External Approach (ICD-10-PCS; 2024-08-21)
PROC: 02HV33Z Insertion of Infusion Device into Superior Vena Cava, Percutaneous Approach (ICD-10-PCS; 2024-08-26)
PROC: 3E0436Z Introduction of Nutritional Substance into Central Vein, Percutaneous Approach (ICD-10-PCS; 2024-08-26)
PROC: 5A0945A Assistance with Respiratory Ventilation, 24-96 Consecutive Hours, High Flow/Velocity Cannula (ICD-10-PCS; 2024-08-27)
PROC: B246ZZZ Ultrasonography of Right and Left Heart (ICD-10-PCS; 2024-08-27)
PROC: B020ZZZ Computerized Tomography (CT Scan) of Brain (ICD-10-PCS; 2024-08-30)
PROC: BW21YZZ Computerized Tomography (CT Scan) of Abdomen and Pelvis using Other Contrast (ICD-10-PCS; 2024-08-31)
PROC: B020ZZZ Computerized Tomography (CT Scan) of Brain (ICD-10-PCS; 2024-09-10)
DX: K56.609 Unspecified intestinal obstruction, unspecified as to partial versus complete obstruction (principal); A41.9 Sepsis, unspecified organism; J69.0 Pneumonitis due to inhalation of food and vomit; J15.212 Pneumonia due to Methicillin resistant Staphylococcus aureus; J15.0 Pneumonia due to Klebsiella pneumoniae; B37.1 Pulmonary candidiasis; J15.8 Pneumonia due to other specified bacteria; I50.31 Acute diastolic (congestive) heart failure; J91.8 Pleural effusion in other conditions classified elsewhere; G93.40 Encephalopathy, unspecified; G40.802 Other epilepsy, not intractable, without status epilepticus; K90.49 Malabsorption due to intolerance, not elsewhere classified; D50.0 Iron deficiency anemia secondary to blood loss (chronic); D51.3 Other dietary vitamin B12 deficiency anemia; I11.0 Hypertensive heart disease with heart failure; I35.0 Nonrheumatic aortic (valve) stenosis; I48.91 Unspecified atrial fibrillation; E83.39 Other disorders of phosphorus metabolism; E88.09 Other disorders of plasma-protein metabolism, not elsewhere classified; R13.12 Dysphagia, oropharyngeal phase; E11.65 Type 2 diabetes mellitus with hyperglycemia; C61 Malignant neoplasm of prostate; E03.9 Hypothyroidism, unspecified; E78.00 Pure hypercholesterolemia, unspecified; Z66 Do not resuscitate; Z79.4 Long term (current) use of insulin